=== PATIENT | female | born 1975 | race Caucasian/White ===

== ENCOUNTER → 2016-09-22 | Outpatient (CLI) | payer BC | END | disposition short-term general hospital (02) | LOC: CLORTH 10:54 | DX: Z47.89 Encounter for other orthopedic aftercare (principal) ==

== ENCOUNTER → 2016-10-20 | Outpatient (CLI) | payer BC | END | disposition short-term general hospital (02) | LOC: CLORTH 10:26 | DX: Z47.89 Encounter for other orthopedic aftercare (principal) ==

== ENCOUNTER → 2016-12-01 | Outpatient (CLI) | payer BC | END | disposition short-term general hospital (02) | LOC: CLORTH 10:45 | DX: Z47.89 Encounter for other orthopedic aftercare (principal) ==